=== PATIENT | female | born 1970 | race African-American/Black ===

== ENCOUNTER 2018-08-22 11:45 | Emergency (ER) | payer OTHER ==
[~2018-08-22] VITALS: Ht 160 cm; Wt 96.2 kg
[~2018-08-22 11:45] MED LIST: ACETAMINOPHEN325 M1 PO; AMLODIPINE BESYL5 M1 PO; APAP/CODEINE ELI5 M1 OR; ASPIR 8181 MG PO; ATORVASTATIN CA10 MG PO; COLACE 100 MG100 MG PO; NOHOMEMEDICATIONS; PEPCID20 MG PO; ZPAK PO
[2018-08-22 13:14] LABS: ABSOLUTE NEUTROPHILS 4.9 thou/uL (1.4-8.2); EOSINOPHILS 1.2 % (0.0-3.0); HEMATOCRIT 43.8 % (37.0-47.0); HEMOGLOBIN 15.5 gm/dL (12.0-15.0); MCHC 35.3 g/dL (28.0-37.0); MCV 87.7 fL (80.0-100.0); MONOCYTES 6.6 % (1.0-8.0); PLATELET COUNT 256 thou/uL (150-400); POLYS 64.2 % (36.0-66.0); RDW 12.9 % (10.5-14.5); WBC 7.6 thou/uL (4.0-11.0)
[2018-08-22 13:17] LABS: CALCIUM 9.1 mg/dL (8.5-10.1); CREATININE 0.7 mg/dL (0.6-1.0); POTASSIUM 3.6 mmol/L (3.5-5.1)
--- NOTE | 2018-08-22 13:44 | EKG ---
[facility] [place] [address] ELECTROCARDIOGRAM REPORT Name: PETEBAKARILAURIE BROWN [facility] #: [facility]ENTERJustino#: [id number] ������������������ Admission: 08/22/18 ������������������ Attend Phys: Discharge: ������������������ Date of : 68 Report #: [id number] ����������������������������������������������������������������� [id number] THIS REPORT FOR: //name// [facility] ED Test Date: 2018-08-22 Test Time: 11:59:52 Pat Name: BAKARI PETE Department: Room: Gender: F [employer] Operator: aj : 1970 Requested By: Becca Calhoun Order Number: [id number] MD: Giuliano Husain Measurements Intervals [place] Rate: 107 P: 36 DE: 185 QRS: -22 QRSD: 97 T: 15 QT: 345 QTc: 461 Interpretive Statements Sinus tachycardia Poor R wave progression Low voltage, precordial leads Compared to ECG 07/27/2018 07:05:23 No significant change was found Electronically Signed On 08-22-2018 13:43:57 CDT by Giuliano Husain [email or web address] ��������������������������������������������� <ELECTRONICALLY SIGNED> ���������������������������������������� By: Giuliano Husain MD, [facility] ��������������������������������������������� 08/22/18 1343 [id number] Giuliano Husain MD, FACC /EPI
[2018-08-22 14:51] VITALS: BP 136/71
== END 2018-08-22 14:55 | disposition home or self-care (01) ==
LOC: ER 11:45
PROVIDERS: Emergency Medicine
DX: I10 Essential (primary) hypertension (principal); R20.2 Paresthesia of skin; E66.9 Obesity, unspecified; Z68.37 Body mass index [BMI] 37.0-37.9, adult; Z90.710 Acquired absence of both cervix and uterus; Z98.890 Other specified postprocedural states; F17.210 Nicotine dependence, cigarettes, uncomplicated; Z88.2 Allergy status to sulfonamides